=== PATIENT | female | born 2000 | race Caucasian/White ===

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

== ENCOUNTER → 2020-01-23 | Outpatient (CLI) | payer BC ==
[~2020-01-23] MED LIST: ALDACTONE50 MG PO; AMOXICILLIN875 MG PO
== END ==
LOC: COL.LAB 09:59
DX: Z01.89 Encounter for other specified special examinations (principal)